=== PATIENT | female | born 1970 | race African-American/Black ===

== ENCOUNTER 2022-03-23 10:01 | Emergency (ER) | payer MEDICAID ==
[~2022-03-23] VITALS: Ht 154.9 cm; Wt 65.0 kg
[2022-03-23] MEDS ORDERED: LOPERAMIDE HCL 2MG CAPSULE PO ONE (10:15)
[2022-03-23] MEDS ORDERED: ONDANSETRON HCL 4MG/2ML INJ IV STA (10:15)
[2022-03-23] MEDS ORDERED: MORPHINE SULFATE 4 MG/ML CPJ (NOT FOR IM USE) IV STA (10:15)
[2022-03-23] MEDS ORDERED: SODIUM CHLORIDE 0.9% 1,000 ML IV ONE (10:15)
[2022-03-23 13:17] LABS: BASOPHILS % 0.3 % (0.0-2.0); HEMATOCRIT. 43.9 % (36.0-48.0); HEMOGLOBIN. 15.2 g/dL (12.0-16.0); LYMPHOCYTES % 19.7 % (20.0-50.0); MEAN CORPUSCULAR HEMOGLOBIN 31.7 pg (28.0-32.0); MEAN CORPUSCULAR VOLUME 91.7 fL (81.0-99.0); MEAN PLATELET VOLUME 8.4 fl (7.4-10.4); MONOCYTES % 5.2 % (2.0-8.0); NEUTROPHILS % 74.8 % (40.0-76.0); PLATELET 276 x1000/uL (130-400); RED BLOOD CELL COUNT 4.79 mill/uL (4.2-5.4); RED CELL DISTRIBUTION WIDTH 12.7 % (11.6-14.6)
[2022-03-23 13:27] LABS: PROTHROMBIN TIME 11.2 sec (9.6-11.0)
[2022-03-23 13:31] LABS: CHLORIDE 98 mEq/L (98-107)
[2022-03-23] MEDS ORDERED: MORPHINE SULFATE 4 MG/ML CPJ (NOT FOR IM USE) IV NR (13:45)
[2022-03-23] MEDS ORDERED: LOPERAMIDE HCL 2MG CAPSULE PO NR (13:45)
[2022-03-23] MEDS ORDERED: ONDANSETRON HCL 4MG/2ML INJ IV NR (13:45)
[2022-03-23 13:57] LABS: CLARITY URINE CLOUDY (CLEAR); COLOR URINE YELLOW (YELLOW); KETONES URINE 3+ (NEGATIVE); LEUKOCYTE ESTERASE URINE NEGATIVE (NEGATIVE); NITRITE URINE NEGATIVE (NEGATIVE); OCCULT BLOOD URINE NEGATIVE (NEGATIVE); PH URINE 5.5 (4.5-8.0); PROTEIN URINE 1+ (NEGATIVE); SPECIFIC GRAVITY URINE 1.025 (1.005-1.030); UROBILINOGEN URINE 0.2 E.U./dL (0.2-1.0)
[2022-03-23] MEDS ORDERED: IMOD MT (14:17)
[2022-03-23] MEDS ORDERED: ONDA4TAB50 MT (14:17)
[2022-03-23] MEDS ORDERED: TRAZ-251 MT (14:22)
[2022-03-23 14:51] VITALS: BP 126/65
== END 2022-03-23 14:52 | disposition home or self-care (01) ==
LOC: ER 10:01
DX: R19.7 Diarrhea, unspecified (principal); R03.0 Elevated blood-pressure reading, without diagnosis of hypertension; N83.202 Unspecified ovarian cyst, left side
CPT/HCPCS: 36415; 74176; 80053; 81003; 83690; 85025; 85610; 87015; 87045; 87427; 87449; 87493; 96361; 96374; 96375; 99285; J2270; J2405; J7030